=== PATIENT | female | born 1990 | race Caucasian/White ===

== ENCOUNTER 2019-12-26 01:09 | Emergency (ER) | payer BC, MEDICAID ==
[2019-12-26] MEDS ORDERED: ACETAMINOPHEN 325 MG TABLET PO ONE (01:45)
[2019-12-26] MEDS ORDERED: IBUPROFEN 600 MG TABLET PO ONE (02:57)
--- NOTE | 2019-12-26 04:08 | RADIOLOGY REPORT (SQ) ---
EXAM DESCRIPTION: X-RAY CHEST TWO VIEWS CLINICAL HISTORY: 29 years Female cough, fever COMPARISON: None TECHNIQUE: PA and lateral chest x-rays at 0333 hours on 12/26/2019. FINDINGS: The lungs are well expanded. There are small airspace consolidations in the central and anteroinferior right middle lobe partially silhouetting the right heart border. The costophrenic sulci are sharp. The heart is normal in size with normal pulmonary vascularity. No acute bony abnormalities are seen. IMPRESSION: Right middle lobe pneumonia.
[2019-12-26 04:52] LABS: VENOUS BLOOD BASE EXCESS -0.4 mmol/L; VENOUS BLOOD HCO3 25.1 mmol/L (20-32); VENOUS BLOOD PCO2 44.4 mmHg (35-63); VENOUS BLOOD PH 7.37 (7.30-7.42)
[2019-12-26 04:58] LABS: APPEARANCE,URINE CLEAR; BILIRUBIN,URINE NEGATIVE (NEGATIVE); COLOR,URINE YELLOW; GLUCOSE, URINE NEGATIVE (NEGATIVE); KETONES,URINE NEGATIVE (NEGATIVE); PROTEIN,URINE NEGATIVE (NEGATIVE); URINE SPECIFIC GRAVITY 1.026; UROBILINOGEN,URINE NEGATIVE mg/dL (<2.0)
[2019-12-26 05:02] LABS: ABSOLUTE LYMPHOCYTES (AUTO) 0.4 10^3/uL (0.5-4.7); ABSOLUTE MONOCYTES (AUTO) 0.4 10^3/uL (0.1-1.4); ABSOLUTE NEUT (AUTO) 7.4 10^3/uL (1.7-8.2); BASOPHILS % (AUTO) 0.2 % (0-2); HEMATOCRIT 36.8 % (36.0-47.0); HEMOGLOBIN 12.9 g/dL (12.0-15.5); LYMPHOCYTES % (AUTO) 5.2 % (13-45); MEAN CORPUSCULAR HEMOGLOBIN 29.6 pg (27.0-33.4); MEAN CORPUSCULAR HGB CONC 34.9 g/dL (32.0-36.0); MEAN CORPUSCULAR VOLUME 85 fl (80-97); MONOCYTES % (AUTO) 4.5 % (3-13); PLATELET COUNT 170 10^3/uL (150-450); RED BLOOD COUNT 4.35 10^6/uL (3.72-5.28); RED CELL DISTRIBUTION WIDTH 13.1 % (11.5-14.0); SEGMENTED NEUTROPHILS % (AUTO) 90.1 % (42-78); TOTAL CELLS COUNTED % (AUTO) 100 %; WHITE BLOOD COUNT 8.2 10^3/uL (4.0-10.5)
[2019-12-26 05:03] LABS: INTERNATIONAL RATION (INR) 1.06; PROTHROMBIN TIME 13.8 SEC (11.4-15.4)
[2019-12-26 05:28] LABS: ALKALINE PHOSPHATASE 46 U/L (38-126); ANION GAP 8 (5-19); ASPARTATE AMINO TRANSFERASE 26 U/L (14-36); BILIRUBIN,TOTAL 0.4 mg/dL (0.2-1.3); BLOOD UREA NITROGEN 19 mg/dL (7-20); CALCIUM 8.8 mg/dL (8.4-10.2); CARBON DIOXIDE 26 mmol/L (22-30); CHLORIDE 103 mmol/L (98-107); GLUCOSE 109 mg/dL (75-110); POTASSIUM 3.8 mmol/L (3.6-5.0); TOTAL PROTEIN 6.6 g/dL (6.3-8.2)
--- NOTE | 2019-12-26 08:04 | ER Document Report ---
ED General - General Chief Complaint: Dizziness Stated Complaint: FEVER,VOMITING,SORE THROAT Time Seen by Provider: 12/26/19 07:30 Notes: 29-year-old woman presents to the emergency department with a history of flulike illness since Friday. She complains of body aches and pains with associated sore throat and congestion fever. States that she had been at home in bed for the past 3 days now her son has a similar illness. She continued to have fever and came to the emergency department for further evaluation and treatment. TRAVEL OUTSIDE OF THE [place] IN LAST 30 DAYS: No - Related Data Allergies/Adverse Reactions: No Known Allergies Allergy (Verified 03/17/15 01:20) Past Medical History - Social History Smoking Status: Never Smoker Chew tobacco use (# tins/day): No Frequency of alcohol use: None Drug Abuse: None Family History: Reviewed & Not Pertinent Patient has suicidal ideation: No Patient has homicidal ideation: No - Past Medical History Cardiac Medical History: Denies: Hx Heart Attack, Hx Hypertension Pulmonary Medical History: Denies: Hx Asthma Neurological Medical History: Denies: Hx Cerebrovascular Accident, Hx Seizures GI Medical History: Denies: Hx Hepatitis, Hx Hiatal Hernia, Hx Ulcer Infectious Medical History: Denies: Hx Hepatitis Past Surgical History: Denies: Hx Mastectomy, Hx Open Heart Surgery, Hx Pacemaker Review of Systems - Review of Systems Notes: Constitutional: + fever. HENT: + Sore throat. Eyes: Negative for visual changes. Cardiovascular: Negative for chest pain. Respiratory: + Cough, no shortness of breath. Gastrointestinal: Negative for abdominal pain, vomiting or diarrhea. Genitourinary: Negative for dysuria. Musculoskeletal: + Myalgias. Skin: Negative for rash. Neurological: Negative for headaches, weakness or numbness. 10 point ROS negative except as marked above and in HPI. Physical Exam - Vital signs Vitals: Temp Pulse Resp BP Pulse Ox 102.9 F H 124 H 20 98/54 L 99 12/26/19 01:28 12/26/19 01:28 12/26/19 01:28 12/26/19 01:12/26/19 01:28 - Notes Notes: PHYSICAL EXAMINATION: Physical Exam: General: Well-nourished well-developed 29-year-old woman in no acute distress HEENT: NC/AT, pupils equal round and reactive to light, MM moist,nares clear, oropharynx, posterior erythema Neck: supple, no adenopathy, no masses. Lungs: clear, no wheezing, no rales no rhonchi CVS: Regular rate and rhythm no murmur gallop or rub Abdomen: Soft, active, nontender, no masses, no hepatosplenomegaly Ext: No edema Neuro: Alert and responsive, moving all 4 extremities on command, cranial nerves intact. Skin: Intact no open lesions, no rash Course - Re-evaluation Re-evalutation: 12/26/19 08:07 Patient presents with complaint of flulike illness, fever, lab was reviewed and we are still awaiting strep and flu testing at this time. 12/26/19 12:03 Patient was given IV ceftriaxone and Zithromax for a right middle lobe pneumonia. I will treat her as outpatient with Zithromax and Cefdinir as pertinent findings. I explained to the patient that she can follow-up with her primary care doctor as needed. - Vital Signs Vital signs: Temp Pulse Resp BP Pulse Ox 97.9 F 78 18 93/51 L 97 12/26/19 07:35 12/26/19 07:35 12/26/19 07:35 12/26/19 07:35 12/26/19 07:35 - Laboratory Result Diagrams: 12/26/19 04:06 12/26/19 04:06 Laboratory results interpreted by me: 12/26/19 12/26/19 03:53 04:06 Lymph % (Auto) 5.2 L Absolute Lymphs (auto) 0.4 L Seg Neutrophils % 90.1 H POC Glucose 115 H 12/26/19 12:03 I have reviewed laboratory data and used this information for the treatment decisions regarding the patient. - Diagnostic Test Radiology reviewed: Image reviewed, Reports reviewed - Chest x-ray: Right middle lobe pneumonia Discharge - Discharge Clinical Impression: Right middle lobe pneumonia Qualifiers: Pneumonia type: due to unspecified organism Qualified Code(s): J18.9 - Pneumonia, unspecified organism Fever Qualifiers: Encounter type: initial encounter Condition: Good Disposition: HOME, SELF-CARE Instructions: Acetaminophen, Pneumonia ([facility]) Additional Instructions: You have been diagnosed with a pneumonia. It is very important that you take all of your antibiotics until they are gone even if you are feeling better. Please return to the emergency department immediately if you began having worsening shortness of breath, become confused, have worsening pain, pass out, have persistent vomiting that prevents you from being able to drink fluids for more than 12 hours, or have any other symptoms that are worrisome to you. Please follow-up with your primary care doctor in the next 1-2 days. Prescriptions: Cefdinir [Omnicef 300 mg Capsule] 1 cap PO BID #20 capsule Azithromycin [Zithromax 250 mg Tablet] 250 mg PO ASDIR PRN #6 tablet PRN Reason:
--- NOTE | 2019-12-26 08:08 | EKG REPORT ---
SEVERITY:- NORMAL ECG - SINUS RHYTHM : Confirmed by: Lane Oneill MD 26-Dec-2019 08:07:32
[2019-12-26 08:37] LABS: A TYPE INFLUENZA AG NEGATIVE (NEGATIVE); B INFLUENZA AG NEGATIVE (NEGATIVE)
[2019-12-26] MEDS ORDERED: CEFTRIAXONE INJ 1000 MG VIAL IV ONE (09:25)
[2019-12-26] MEDS ORDERED: AZITHROMYCIN INJ 500 MG VIAL IV ONE (09:26)
[2019-12-26 12:27] VITALS: BP 93/59
== END 2019-12-26 12:27 | disposition home or self-care (01) ==
LOC: ER 01:09
DX: J18.9 Pneumonia, unspecified organism (principal); R50.9 Fever, unspecified
CPT/HCPCS: 93005; 99284; 96365; 96368; 36415; 87040; 87070; 87880; 82962; 83605; 85025; 85610; 87077; 80053; 81001; 82803; 87804; 71046; 93010; J0696; J0456

== ENCOUNTER 2020-02-02 07:34 | Emergency (ER) | payer OTHER ==
--- NOTE | 2020-02-02 08:36 | ER Document Report ---
HPI - HPI Time Seen by Provider: 02/02/20 08:10 Pain Level: 5 Notes: Patient is a 29-year-old female with no significant past medical history presents complaining of having dull left ear pain for the past 12 days. Patient states that she did have an illness prior to that. Patient states that she does have some ulcerations to her soft palate as well after she was evaluated by an urgent care the other day. She is otherwise able to eat and drink without difficulty. She is urinating normally and having normal bowel movements. She has not been having any dental pain. Denies any headache, fever, neck pain, URI, chest pain, palpitations, syncope, cough, shortness of breath, wheeze, dyspnea, abdominal pain, nausea/vomiting/diarrhea, urinary retention, dysuria, hematuria, dizziness, vertigo, ear fullness, or rash. - ROS Systems Reviewed and Negative: Yes All other systems reviewed and negative - CONSTITUTIONAL Constitutional: DENIES: Fever, Chills - EENT EENT: REPORTS: Ear Pain. DENIES: Sore Throat, Eye problems - REPRODUCTIVE LMP: now Reproductive: DENIES: : Past Medical History - Social History Smoking Status: Never Smoker Chew tobacco use (# tins/day): No Frequency of alcohol use: None Drug Abuse: None Family History: Reviewed & Not Pertinent Patient has suicidal ideation: No Patient has homicidal ideation: No - Past Medical History Cardiac Medical History: Denies: Hx Heart Attack, Hx Hypertension Pulmonary Medical History: Denies: Hx Asthma Neurological Medical History: Denies: Hx Cerebrovascular Accident, Hx Seizures GI Medical History: Denies: Hx Hepatitis, Hx Hiatal Hernia, Hx Ulcer Infectious Medical History: Denies: Hx Hepatitis Past Surgical History: Denies: Hx Mastectomy, Hx Open Heart Surgery, Hx Pacemaker Vertical Provider Document - CONSTITUTIONAL Agree With Documented VS: Yes Notes: PHYSICAL EXAMINATION: GENERAL: Well-appearing, well-nourished and in no acute distress. A&Ox4. Answers questions appropriately. Moves comfortably w/o notable distress HEAD: Atraumatic, normocephalic. EYES: Pupils equal round and reactive to light, extraocular movements intact, sclera anicteric, conjunctiva are normal. ENT: EAC clear b/l, there is mild swelling to the left EAC with mild reproducible tenderness appreciated. No mastoid tenderness b/l. TM's intact b/l without erythema, fluid, or perforation. Nares patent and with clear discharge. oropharynx/soft palate does have 1-2 small ulcerations noted. No tonsilar hypertrophy without erythema no exudate. No palatine shift. Uvula midline. No tongue protrusion. No drooling, hoarseness, or airway compromise. Moist mucous membranes. No sinus tenderness. Mouth: good dentition. No dental tenderness. No obvious abscess. NECK: Normal range of motion, supple without lymphadenopathy. No rigidity/m eningismus. LUNGS: Breath sounds clear to auscultation bilaterally and equal. No wheezes rales or rhonchi. No retractions HEART: Regular rate and rhythm without murmurs, rubs, gallops. NEUROLOGICAL: Normal speech, normal gait. PSYCH: Normal mood, normal affect. SKIN: Warm, Dry, normal turgor, no rashes or lesions noted. - INFECTION CONTROL TRAVEL OUTSIDE OF THE [place] IN LAST 30 DAYS: No Course - Re-evaluation Re-evalutation: 02/02/20 08:34 Patient is an afebrile, well-hydrated, 29-year-old female who presents with left otalgia. Differential does include a mild acute otitis externa, eustachian tube dysfunction, pain from possible lymphadenopathy with the noted small ulcerations to the back of the soft palate area. Vitals are acceptable without significant tachycardia, tachypnea, or hypoxia. PE is otherwise unremarkable. Patient is nontoxic-appearing and is tolerating p.o. without difficulty. No further work- up warranted. Low suspicion for any sepsis, meningitis, severe dehydration, respiratory compromise, mastoiditis, peritonsillar/pharyngeal abscess, Tim's, or other systemic emergent condition at this time. Patient is aware that condition can change from initial presentation and she needs to monitor symptoms closely and seek medical attention with any acute changes. I will send her home with a prescription for Ciprodex. Recheck with your PCM in 3 to 5 days. Schedule consider consult with ENT. Return to the ED with any other worsening/concerning symptoms. Patient is in agreement. - Vital Signs Vital signs: Temp Pulse Resp BP Pulse Ox 98.0 F 72 18 130/75 H 100 02/02/20 07:39 02/02/20 07:39 02/02/20 07:39 02/02/20 07:39 02/02/20 07:39 Discharge - Discharge Clinical Impression: Otalgia, left ear, Ulcer of soft palate Condition: Stable Disposition: HOME, SELF-CARE Additional Instructions: Maintain adequate fluid intake Take meds as directed tylenol/ibuprofen as needed Avoid Q-tips in the ears over the counter cold medication as needed for symptoms F/u: with your PCM in 3-5 days for a recheck Schedule consult with ENT for further evaluation and management Return to the ED with any fever, dizziness, tinnitus, headaches, worsening pain, chest pain, palpitations, syncope, neck pain/stiffness, shortness of breath, wheezing, drooling, trouble swallowing/breathing, abdominal pain, n/v/d, rash, or worsening/concerning symptoms otherwise. Prescriptions: Ciprofloxacin HCl/Dexameth [Ciprodex Otic Suspension 7.5 ml Bottle] 4 drop OT BID #1 bottle Ibuprofen [Motrin 800 mg Tablet] 800 mg PO Q8H PRN #15 tab PRN Reason: Forms: Elevated Blood Pressure Referrals: MALLORY JONES DO [ASSOCIATE] - Follow up in 3-5 days
[2020-02-02 08:47] VITALS: BP 102/64
== END 2020-02-02 08:46 | disposition home or self-care (01) ==
LOC: ER 07:34
DX: H92.02 Otalgia, left ear (principal); H93.8X2 Other specified disorders of left ear; K12.1 Other forms of stomatitis
CPT/HCPCS: 99282

== ENCOUNTER 2020-02-03 06:52 | Emergency (ER) | payer OTHER ==
[2020-02-03 07:26] VITALS: BP 107/69
[2020-02-03] MEDS ORDERED: DIPHENHYDRAMINE HCL 50 MG/ML VIAL IV ONE (08:01)
[2020-02-03] MEDS ORDERED: NORMAL SALINE 1000 ML 1,000 ML IV ONE (08:02)
[2020-02-03] MEDS ORDERED: PROCHLORPERAZINE EDISYLATE INJ 10 MG/2 ML VIAL IV ONE (08:02)
[2020-02-03 08:10] LABS: ABSOLUTE LYMPHOCYTES (AUTO) 0.8 10^3/uL (0.5-4.7); ABSOLUTE MONOCYTES (AUTO) 0.5 10^3/uL (0.1-1.4); ABSOLUTE NEUT (AUTO) 4.8 10^3/uL (1.7-8.2); BASOPHILS % (AUTO) 0.3 % (0-2); EOSINOPHILS % (AUTO) 0.7 % (0-6); HEMATOCRIT 36.7 % (36.0-47.0); HEMOGLOBIN 12.9 g/dL (12.0-15.5); LYMPHOCYTES % (AUTO) 12.3 % (13-45); MEAN CORPUSCULAR HEMOGLOBIN 29.9 pg (27.0-33.4); MEAN CORPUSCULAR HGB CONC 35.2 g/dL (32.0-36.0); MEAN CORPUSCULAR VOLUME 85 fl (80-97); MONOCYTES % (AUTO) 7.6 % (3-13); PLATELET COUNT 244 10^3/uL (150-450); RED BLOOD COUNT 4.32 10^6/uL (3.72-5.28); SEGMENTED NEUTROPHILS % (AUTO) 79.1 % (42-78); TOTAL CELLS COUNTED % (AUTO) 100 %; WHITE BLOOD COUNT 6.1 10^3/uL (4.0-10.5)
[2020-02-03 08:28] LABS: ANION GAP 6 (5-19); BLOOD UREA NITROGEN 16 mg/dL (7-20); CARBON DIOXIDE 26 mmol/L (22-30); CHLORIDE 106 mmol/L (98-107); GLUCOSE 108 mg/dL (75-110); POTASSIUM 4.4 mmol/L (3.6-5.0)
[2020-02-03] MEDS ORDERED: GABAPENTIN 100 MG CAPSULE PO ONE (09:59)
[2020-02-03] MEDS ORDERED: VALACYCLOVIR HCL 500 MG TABLET PO ONE (09:59)
[2020-02-03] MEDS ORDERED: DEXAMETHASONE SOD PHOS INJ 10 MG/1 ML VIAL IV ONE (09:59)
--- NOTE | 2020-02-03 18:27 | ER Document Report ---
Entered by ALVARO MARTINO SCRIBE 02/03/20 0755 Acting as scribe for:SHAYLEE RUDOLPH DO ED General - General Chief Complaint: Headache Stated Complaint: HEAD INJURY/EAR PAIN Time Seen by Provider: 02/03/20 07:49 Mode of Arrival: Ambulatory Information source: Patient Notes: This 29-year-old female patient with a remote history of chickenpox presents to the emergency department today with complaints of continued left-sided ear pain, left-sided throat pain, and pain on the left side of her head. Patient has been seen twice for this over the last two days. Patient states she was initially seen at an urgent care two days ago and was told that the ear did not look infected, was told to take Claritin. Patient was seen in this emergency department yesterday and she was prescribed Ciprodex drops for possible otitis externa. TRAVEL OUTSIDE OF THE [place] IN LAST 30 DAYS: No - Related Data Allergies/Adverse Reactions: No Known Allergies Allergy (Verified 02/02/20 08:24) Home Medications: claritin. motrin. ear gtts since yestserday Past Medical History - General Information source: Patient - Social History Smoking Status: Never Smoker Cigarette use (# per day): No Frequency of alcohol use: None Drug Abuse: None Occupation: [employer] Lives with: Family Family History: Reviewed & Not Pertinent Patient has suicidal ideation: No Patient has homicidal ideation: No Review of Systems - Review of Systems Constitutional: No symptoms reported EENT: See HPI, Eye pain, Ear pain Cardiovascular: No symptoms reported Respiratory: No symptoms reported Gastrointestinal: No symptoms reported Genitourinary: No symptoms reported Female Genitourinary: No symptoms reported Musculoskeletal: No symptoms reported Skin: No symptoms reported Hematologic/Lymphatic: No symptoms reported Neurological/Psychological: See HPI, Headaches -: Yes All other systems reviewed and negative Physical Exam - Vital signs Vitals: Temp Pulse Resp BP Pulse Ox 98.7 F 78 16 107/69 97 02/03/20 06:56 02/03/20 06:56 02/03/20 06:56 02/03/20 06:56 02/03/20 06:56 - Notes Notes: Physical Exam: General: Alert, appears uncomfortable. HEENT: Normocephalic. Atraumatic. PERRL. Extraocular movements intact. Oropharynx clear. See skin exam Neck: Supple. Non-tender. Respiratory: No respiratory distress. Clear and equal breath sounds bilaterally. Cardiovascular: Regular rate and rhythm. Abdominal: Normal Inspection. Non-tender. No distension. Normal Bowel Sounds. Back: No gross abnormalities. Extremities: Moves all four extremities. Upper extremities: Normal inspection. Normal ROM. Lower extremities: Normal inspection. No edema. Normal ROM. Neurological: Normal cognition. AAOx4. Normal speech. Psychological: Normal affect. Normal Mood. Skin: Vesicular lesions to the left ear and left scalp consistent with a dermatomal distribution. Ulcerations to the left soft palate. Course - Re-evaluation Re-evalutation: 02/03/20 10:51 Patient re-evaluated, is sleeping comfortably. 02/03/20 Patient exam is consistent with shingles. Patient with chickenpox as a child. Will be started on Valtrex, prednisone, given gabapentin for pain. No evidence for meningitis. Return immediately for any worsening or concerning symptoms. Advised not to touch her ear as her son has not had chickenpox or been vaccinated she is to stay away from him. Patient understands and agrees with plan. Stable for discharge. Return if any worsening or concerning symptoms. - Vital Signs Vital signs: Temp Pulse Resp BP Pulse Ox 98.7 F 78 16 107/69 97 02/03/20 06:56 02/03/20 06:56 02/03/20 06:56 02/03/20 06:56 02/03/20 06:56 - Laboratory Result Diagrams: 02/03/20 07:56 02/03/20 07:56 Laboratory results interpreted by me: 02/03/20 07:56 Lymph % (Auto) 12.3 L Seg Neutrophils % 79.1 H Discharge - Discharge Clinical Impression: Shingles Qualifiers: Herpes zoster complications: without complications Qualified Code(s): B02.9 - Zoster without complications Condition: Stable Disposition: HOME, SELF-CARE Instructions: Shingles ([facility]) Prescriptions: Methylprednisolone [Medrol Dosepack (4 mg/Tab) 21 Tab/Dosepak] 4 mg PO ASDIR PRN #21 tab.ds.pk PRN Reason: Gabapentin [Neurontin 100 mg Capsule] 100 mg PO Q12 #30 capsule Valacyclovir HCl [Valtrex 500 Mg Tablet] 1,000 mg PO TID #21 tablet Forms: Return to Work I personally performed the services described in the documentation, reviewed and edited the documentation which was dictated to the scribe in my presence, and it accurately records my words and actions.
== END 2020-02-03 12:11 | disposition home or self-care (01) ==
LOC: ER 06:52
DX: B02.9 Zoster without complications (principal); H92.02 Otalgia, left ear; R07.0 Pain in throat; R51 Headache; H57.10 Ocular pain, unspecified eye; Z79.1 Long term (current) use of non-steroidal anti-inflammatories (NSAID)
CPT/HCPCS: 99284; 96361; 96374; 96375; 36415; 84703; 85025; 80048; J1200; J0780; J7030; J1100